=== PATIENT | male | born 2000 | race Caucasian/White ===

== ENCOUNTER 2023-09-15 21:33 | Emergency (ER) | payer OTHER ==
[~2023-09-15] VITALS: Ht 193 cm; Wt 120.2 kg
[~2023-09-15 21:33] MED LIST: ALBU8HFA2 INH; CEFU500 PO; PRED20 PO
[2023-09-15 21:41] VITALS: BP 157/98
== END 2023-09-15 22:17 | disposition home or self-care (01) ==
LOC: ER 21:33
DX: M54.50 Low back pain, unspecified (principal); T14.90XA Injury, unspecified, initial encounter; V47.5XXA Car driver injured in collision with fixed or stationary object in traffic accident, initial encounter; Z88.0 Allergy status to penicillin
CPT/HCPCS: 72100; 96372; 99284-25; A9270; J1885